=== PATIENT | female | born 1940 | race Two or more races ===

== ENCOUNTER → 2017-03-12 07:29 | Outpatient (CLI) | payer OTHER | END | disposition home or self-care (01) | LOC: LAB 07:29 | DX: E03.8 Other specified hypothyroidism (principal); I10 Essential (primary) hypertension; E78.2 Mixed hyperlipidemia ==

== ENCOUNTER 2018-04-01 15:30 | Emergency (ER) | payer OTHER ==
[~2018-04-01] VITALS: Ht 152.4 cm; Wt 61.2 kg
[2018-04-01] MEDS ORDERED: LOSARTAN POTASS25 MG (15:49)
[2018-04-01] MEDS ORDERED: SYNTHROID75 MCG (15:49)
== END 2018-04-01 20:58 | disposition home or self-care (01) ==
LOC: ER 15:30
DX: R42 Dizziness and giddiness (principal)

== ENCOUNTER 2019-07-29 10:31 | Emergency (ER) | payer OTHER ==
[~2019-07-29] VITALS: Ht 160 cm; Wt 68.0 kg
[~2019-07-29 10:31] MED LIST: LOSARTAN POTASS25 MG; SYNTHROID75 MCG
== END 2019-07-29 20:33 | disposition home or self-care (01) ==
LOC: ER 10:31
DX: E86.0 Dehydration (principal)

== ENCOUNTER 2022-09-10 14:04 | Emergency (ER) | payer OTHER ==
[~2022-09-10] VITALS: Ht 152.4 cm; Wt 70.8 kg
== END 2022-09-10 19:43 | disposition home or self-care (01) ==
LOC: ER 14:04
DX: R42 Dizziness and giddiness (principal); Z88.6 Allergy status to analgesic agent
CPT/HCPCS: 36415; 96365; 99284; J2405; J3490